=== PATIENT | female | born 1985 | race Caucasian/White ===

== ENCOUNTER 2020-09-06 21:51 | Emergency (ER) | payer SELFPAY ==
[2020-09-06 21:52] VITALS: BP 149/75; PULSE 114; RESP 22; TEMP 36.7; O2SAT 96; BMI 36.1
--- NOTE | 2020-09-06 22:02 | EKG12_ITS ---
Test Reason : DYSRHYTHMIA Blood Pressure : / mmHG Vent. Rate : 113 BPM Atrial Rate : 111 BPM P-R Int : 000 ms QRS Dur : 080 ms QT Int : 472 ms P-R-T Axes : 000 055 066 degrees QTc Int : 647 ms Sinus tachycardia Prolonged QT Abnormal ECG Confirmed by JARRET ARCOS, HENRRY ([id number]), marketing editor DESEAN DYER ([id number]) on 09/07/2020 9:43:08 AM Referred By: CL Confirmed By:HENRRY WHEAT MD
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
[2020-09-06] MEDS: fentaNYL 100 MCG/2 ML Ampul IV (22:05)
[2020-09-06] MEDS: 0.9% Normal Saline 1,000 ML 999 ML IV (22:06)
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
--- NOTE | 2020-09-06 22:13 | ED.RN ---
NO OLD EKGS IN MUSE
[2020-09-06 22:17] LABS: Absolute Lymphocyte Count 5.36 X10^3/uL (0.83-4.51); Absolute Neutrophil Count 4.8 X10^3/uL (2.0-7.7); Basophil# 0.04 X10^3/uL; Basophil% 0.4 % (0-1); Eosinophil# 0.07 X10^3/uL; Eosinophils% 0.6 % (0-5); Hematocrit 42.9 % (37-47); Hemoglobin 14.3 g/dL (12.0-15.0); Lymphocyte # 5.36 X10^3/ul (4.0); Lymphocyte % 47.1 % (19-41); Mean Corp Hgb Conc 33.3 g/dL (32-36); Mean Corpuscular Hgb 30.4 pg (27.0-32.0); Mean Corpuscular Volume 91.3 fL (81-99); Mean Platelet Vol. 9.1 fl (6.2-12.0); Monocyte# 0.99 X10^3/uL; Monocyte% 8.7 % (0-10); NRBC Flagged by Analyzer 0 % (0-5); Neutrophil # 4.84 X10^3/uL (2.7-7.7); Neutrophil % 42.4 % (47-70); POSITIVE DIFFERENTIAL YES; Platelet Count 319 K/mm3 (150-450); RBC Distribution Width CV 11.2 % (11.6-14.6); RBC Distribution Width SD 37.5 fl (35.1-43.9); White Blood Count 11.4 K/mm3 (4.4-11.0)
[2020-09-06 22:29] LABS: Differential Indicated SCAN CRITERIA MET
[2020-09-06 22:34] LABS: AST(SGOT) 29 U/L (15-37); Alanine Aminotransfer ALT/SGPT 20 U/L (13-56); Albumin, Serum 3.6 g/dL (3.2-5.0); Alkaline Phosphatase 68 U/L (45-117); Anion Gap 8 (5-15); BUN 24 mg/dL (7-18); BUN/Creat Ratio 20.2 RATIO (10-20); Calcium,Total 8.5 mg/dL (8.5-10.1); Chloride 112 mmol/L (98-107); Creatinine, Serum 1.19 mg/dL (0.55-1.02); EST Glomerular Filtration Rate 55 mL/min (>60); Est Glom Filt Rate - Afr Amer 66 mL/min (>60); Estimated Creatinine Clearance 66.56 ml/min; Globulin 3.9 g/dL (2.2-4.2); Glucose 91 mg/dL (74-106); Protein, Total 7.5 g/dL (6.4-8.2); Sodium Level 145 mmol/L (136-145)
[2020-09-06 22:40] LABS: Alcohol, Blood (Medical)-Serum < 3.0 mg/dL
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
[2020-09-06 22:43] LABS: Differential Comment SCANNED
[2020-09-06] MEDS: Morphine 4 MG/ML Syringe IV (23:14)
[2020-09-06] MEDS: Diphth,Pertuss(Acell),Tet Vac 0.5 ML Vial IM (23:15)
[2020-09-06] MEDS: Ondansetron 4 MG/2 ML Vial IM (23:15)
[2020-09-06 23:19] VITALS: BP 121/79; PULSE 110; RESP 20; O2SAT 99
[2020-09-06 23:55] LABS: Mucous, Urine 0 SEEN /hpf (<or=2+); Red Blood Cells-Urine 0 SEEN /hpf (0-5)
[2020-09-06 23:59] LABS: Color, Urine Yellow (Yellow); Glucose, Dipstick Normal (Normal); Ketone-Dipstick Negative (Negative); Leukocyte Esterase-Dipstick 500 /ul (Negative); Nitrite-Dipstick Negative (Negative); Occult Blood-Urine 10 /ul (Negative); Protein-Dipstick 30 mg/dl (Negative); Urine Bilirubin Dipstick Negative (Negative); Urine Clarity Cloudy (Clear); Urine Urobilinogen Normal (Normal)
[2020-09-07 00:09] LABS: Internal QC Validated? YES +Cl - CLEAR BKGD; Pregnancy, Serum, hCG Quali. NEGATIVE Negative
[2020-09-07 00:21] LABS: Squamous Epithelial Cells - UA 5-10 SEEN /hpf (5-10); Transitional Epithelial - Ur 0-5 SEEN /hpf (0-5)
[2020-09-07 00:22] LABS: Bacteria 1+ /hpf (None Seen); White Blood Cells 10-25 SEEN /hpf (0-5)
[2020-09-07 00:23] LABS: Amorphous Sediment RARE
[2020-09-07 00:26] LABS: Amphetamine Urine VISTA NEGATIVE (<1000 ng/mL); Barbiturate Urine VISTA NEGATIVE (< 200 ng/mL); Benzodiazepine Urine VISTA NEGATIVE (< 200 ng/mL); Cocaine Urine VISTA NEGATIVE (< 300 ng/mL); Ecstacy Urine VISTA NEGATIVE (< 500 ng/mL); Methadone Urine VISTA NEGATIVE (< 300 ng/mL); PCP Urine VISTA NEGATIVE (< 25 ng/mL); THC Urine VISTA NEGATIVE (< 50 ng/mL); Vista UDS pH Range 5
[2020-09-07 00:30] VITALS: BP 122/76; PULSE 119; RESP 17; O2SAT 97
[2020-09-07 00:38] VITALS: BP 122/76; PULSE 116; RESP 19; O2SAT 96
== END 2020-09-07 01:57 | disposition home or self-care (01) ==
PROVIDERS: Emergency Provider Emergency Medicine
DX: S40.012A Contusion of left shoulder, initial encounter (principal); S70.11XA Contusion of right thigh, initial encounter; S30.810A Abrasion of lower back and pelvis, initial encounter; E87.6 Hypokalemia; N28.9 Disorder of kidney and ureter, unspecified; V89.2XXA Person injured in unspecified motor-vehicle accident, traffic, initial encounter
CPT/HCPCS: 70450; 71260; 72125; 73060; 73552; 74177; 80048; 80076; 80307; 80320; 81001; 84703; 85025; 90715; 93005; 96372; 96374; 96375; 99285; J7030; Q9967; A4216; G0480; J2405